=== PATIENT | male | born 2005 | race Caucasian/White ===

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

== ENCOUNTER 2025-04-11 23:17 | Emergency (ER) | payer BC ==
[2025-04-11] MEDS: Ketorolac 30 MG/ML SDV IM ONE (23:37)
[2025-04-12 00:26] VITALS: BP 126/55; PULSE 63
== END 2025-04-12 00:26 | disposition home or self-care (01) ==
LOC: MW.ED 23:17
DX: S60.221A Contusion of right hand, initial encounter (principal); Z88.0 Allergy status to penicillin; Z88.1 Allergy status to other antibiotic agents; W22.8XXA Striking against or struck by other objects, initial encounter; Y93.89 Activity, other specified
CPT/HCPCS: 29125; 73110; 73130; 96372; 99283; A9270; J1885; 99284